=== PATIENT | male | born 1945 | race Asian ===

== ENCOUNTER 2017-04-07 08:50 | Emergency (ER) | payer MEDICARE, OTHER ==
[~2017-04-07] VITALS: Ht 165.1 cm; Wt 45.5 kg
[2017-04-07] MEDS ORDERED: LORAZEPAM INJ 2 MG/ML VIAL ONE (09:27)
[2017-04-07] MEDS ORDERED: LORAZEPAM INJ 2 MG/ML VIAL IV ONE (09:30)
--- NOTE | 2017-04-07 09:32 | NUR ---
IV ACCESS STARTED. BLOOD DRAWN FOR LABS. MEDICATED ORDERED.
[2017-04-07 09:50] LABS: CALCIUM, SERUM 9.1 mg/dL (8.5-10.1); CREATININE 1.6 mg/dL (0.6-1.3); POTASSIUM 5.2 mmol/L (3.5-5.1)
[2017-04-07 09:55] LABS: PHENYTOIN (DILANTIN) 2.8 ug/ml (10.0-20.0)
[2017-04-07] MEDS ORDERED: phenytoin SODIUM IV 1,000 MG in IV NS 0.9% 100 ML IV ONE (10:30)
--- NOTE | 2017-04-07 11:30 | NUR ---
Patient is resting comfortably in bed with eyes closed. Easily aroused. VSS
--- NOTE | 2017-04-07 12:03 | NUR ---
[facility] WAS CALLED FOR TRANSPORT AT 1210 AND WAS GIVEN A 30 MIN ETA BY DISPATCHER MAJOR . TRIP#: [id number]
--- NOTE | 2017-04-07 13:10 | NUR ---
IV removed. Catheter intact and site benign. Pressure and 4x4 applied to site. No bleeding noted.
--- NOTE | 2017-04-07 13:18 | NUR ---
Patient discharged to home in stable condition. Written and verbal after care instructions given. Patient verbalizes understanding of instruction.
[2017-04-07 13:20] VITALS: BP 114/71
== END 2017-04-07 13:21 | disposition home or self-care (01) ==
LOC: ER 08:52
DX: S09.90XA Unspecified injury of head, initial encounter (principal); R56.9 Unspecified convulsions; F03.90 Unspecified dementia, unspecified severity, without behavioral disturbance, psychotic disturbance, mood disturbance, and anxiety; E78.00 Pure hypercholesterolemia, unspecified; I10 Essential (primary) hypertension; R79.1 Abnormal coagulation profile; F20.9 Schizophrenia, unspecified; W22.8XXA Striking against or struck by other objects, initial encounter; Y93.89 Activity, other specified; Y92.89 Other specified places as the place of occurrence of the external cause; Y99.8 Other external cause status
CPT/HCPCS: 36415; 70450; 80048; 80185; 96365; 96375; 99285; A4606; J1165; J2060; J7030; Z7610